=== PATIENT | male | born 1955 | race Caucasian/White ===

== ENCOUNTER 2019-09-10 02:10 | Inpatient (IN) ==
[2019-09-10] MEDS ORDERED: ALBUTEROL 2.5 MG/3 ML NEB RESP TX PRN (04:29)
[2019-09-10] MEDS ORDERED: ACETAMINOPHEN 325 MG TABLET PO PRN (04:29)
[2019-09-10] MEDS ORDERED: ONDANSETRON 4 MG/2 ML VIAL IV PRN (04:29)
[2019-09-10 04:46] LABS: Basophils % 0.1 % (0.0-0.8); Immature Granulocytes % 1.2 %; Immature Granulocytes Absolute 0.08 #; Lymphocytes # 0.9 10*3/uL (1.4-4.0); Lymphocytes % 12.4 % (21.2-54.2); Mean Corpuscular HGB Conc 32.6 GM/DL (32-36); Mean Corpuscular Volume 90.3 FL (87-102); Mean Platelet Volume 11.6 FL (9.6-12.0); Monocytes % 6.4 % (1.7-12.7); Neutrophils % 79.9 % (38.7-73.9); Platelet Count 163 T/CUMM (130-400); Red Blood Count 4.76 MC/CUMM (3.8-5.5); Red Cell Distribution Width 15.1 % (9.3-17.3); White Blood Count 6.9 T/CUMM (4-12)
[2019-09-10 04:52] LABS: ABG Base Excess 7.7 MMOL/L (-2.5-2.5); ABG HCO3 31.4 MMOL/L (20-26); ABG Oxygen Saturation 94.8 % (95-100); ABG PCO2 61.3 MM HG (35-48); ABG PH 7.372 (7.35-7.45); ABG PO2 76.5 MM HG (80-95); ABG TCO2 30.7 MMOL/L (23-27)
[2019-09-10 05:08] LABS: Albumin 2.4 G/DL (3.4-5.0); Bilirubin,Total 1.3 MG/DL (0.2-1.0); Calcium 7.9 MG/DL (8.5-10.1); Osmolality,Calculated 286.4 MOS/KG (273-304); Total Protein 7.9 G/DL (6.4-8.3)
[2019-09-10] MEDS: SODIUM CHLORIDE 0.9% 1,000 ML IV SCH (05:15)
[2019-09-10] MEDS: PHENYLEPHRINE DRIP 40 MG/250 ML PREMIX IV PRN ×3 (05:50→23:30)
[2019-09-10 07:49] LABS: Band Neutrophils 2 % (0-10); Lymphocytes 9 % (20-55); Platelet Estimate Adequate; Segmented Neutrophils 82 % (50-85); Total Cells Counted 100
[2019-09-10] MEDS ORDERED: GLUCAGON 1 MG VIAL IM PRN (08:25)
[2019-09-10] MEDS ORDERED: DEXTROSE 10% 250 ML BAG IV PRN (08:25)
[2019-09-10] MEDS: ZINC SULFATE 220 MG CAPSULE PO SCH (09:50)
[2019-09-10] MEDS: DOCUSATE SODIUM 100 MG CAPSULE PO SCH ×2 (09:50→20:32)
[2019-09-10] MEDS: HYDROXYCHLOROQUINE 200 MG TABLET PO SCH ×2 (09:50→20:33)
[2019-09-10] MEDS: cefTRIAXone 1,000 MG in SYRINGE 1 EACH IV SCH (09:50)
[2019-09-10] MEDS: ENOXAPARIN 80 MG/0.8 ML SYRINGE SUBCUT SCH ×2 (09:50→20:33)
[2019-09-10] MEDS: PANTOPRAZOLE 40 MG VIAL IV SCH (09:50)
[2019-09-10] MEDS: POTASSIUM CHLORIDE 20 MEQ/15 ML UDCUP PER TUBE SCH ×2 (11:15→15:37)
[2019-09-10] MEDS: INSULIN REGULAR 100 UNIT/ML SUBCUT SCH ×3 (12:55→23:13)
[2019-09-10] MEDS ORDERED: SODIUM CHLORIDE 0.9% 1,000 ML IV PRN (15:35)
[2019-09-10] MEDS ORDERED: PHENYLEPHRINE INJ 160 MG in SODIUM CHLORIDE 0.9% 234 ML IV PRN (23:45)
[2019-09-11 03:36] LABS: Allen Test Positive; Pt O2 Delivery Device Ventilator
[2019-09-11 03:41] LABS: ABG Base Excess 8.8 MMOL/L (-2.5-2.5); ABG HCO3 34.7 MMOL/L (20-26); ABG Oxygen Saturation 94.7 % (95-100); ABG PCO2 52.5 MM HG (35-48); ABG PH 7.438 (7.35-7.45); ABG PO2 74.5 MM HG (80-95); ABG TCO2 36.3 MMOL/L (23-27)
[2019-09-11] MEDS: SODIUM CHLORIDE 0.9% 1,000 ML IV SCH (04:53)
[2019-09-11 05:24] LABS: Basophils % 0.5 % (0.0-0.8); Hematocrit 42.1 VOL% (42.0-52.0); Hemoglobin 13.7 GM/DL (14.0-18.0); Immature Granulocytes % 1.1 %; Lymphocytes # 1.8 10*3/uL (1.4-4.0); Mean Corpuscular HGB Conc 32.5 GM/DL (32-36); Mean Corpuscular Volume 91.5 FL (87-102); Mean Platelet Volume 11.8 FL (9.6-12.0); Monocytes % 6.4 % (1.7-12.7); Platelet Count 189 T/CUMM (130-400); Red Cell Distribution Width 15.8 % (9.3-17.3); White Blood Count 8.8 T/CUMM (4-12)
[2019-09-11 05:38] LABS: Albumin 2.1 G/DL (3.4-5.0); Calcium 7.9 MG/DL (8.5-10.1); Osmolality,Calculated 287.1 MOS/KG (273-304); Total Protein 7.7 G/DL (6.4-8.3)
[2019-09-11 05:53] LABS: Hypochromasia Slight
[2019-09-11 05:54] LABS: Microcytosis 1+; Platelet Estimate Adequate
[2019-09-11] MEDS: INSULIN REGULAR 100 UNIT/ML SUBCUT SCH ×3 (06:15→17:24)
[2019-09-11 07:35] LABS: Calcium 7.9 MG/DL (8.5-10.1); Osmolality,Calculated 285.2 MOS/KG (273-304)
[2019-09-11] MEDS: PANTOPRAZOLE 40 MG VIAL IV SCH (08:40)
[2019-09-11] MEDS: DOCUSATE SODIUM 100 MG CAPSULE PO SCH ×2 (08:40→21:30)
[2019-09-11] MEDS: ENOXAPARIN 80 MG/0.8 ML SYRINGE SUBCUT SCH ×2 (08:40→21:30)
[2019-09-11] MEDS: cefTRIAXone 1,000 MG in SYRINGE 1 EACH IV SCH (08:49)
[2019-09-11] MEDS: HYDROXYCHLOROQUINE 200 MG TABLET PO SCH ×2 (08:54→21:30)
[2019-09-11] MEDS: POTASSIUM CHLORIDE 20 MEQ/15 ML UDCUP PER TUBE SCH ×2 (12:47→17:24)
[2019-09-11] MEDS ORDERED: POTASSIUM CHLORIDE 20 MEQ/15 ML UDCUP ONE (17:21)
[2019-09-12] MEDS: INSULIN REGULAR 100 UNIT/ML SUBCUT SCH ×4 (00:10→17:28)
[2019-09-12] MEDS: SODIUM CHLORIDE 0.9% 1,000 ML IV SCH ×2 (02:54→05:33)
[2019-09-12 04:03] LABS: ABG Base Excess 7.6 MMOL/L (-2.5-2.5); ABG HCO3 31.4 MMOL/L (20-26); ABG Oxygen Saturation 96.5 % (95-100); ABG PCO2 52.1 MM HG (35-48); ABG PH 7.421 (7.35-7.45); ABG PO2 81.9 MM HG (80-95); ABG TCO2 29.4 MMOL/L (23-27)
[2019-09-12 04:53] LABS: Basophils % 0.5 % (0.0-0.8); Hematocrit 41.6 VOL% (42.0-52.0); Hemoglobin 13.1 GM/DL (14.0-18.0); Immature Granulocytes % 1.5 %; Immature Granulocytes Absolute 0.13 #; Lymphocytes # 1.6 10*3/uL (1.4-4.0); Lymphocytes % 18.3 % (21.2-54.2); Mean Corpuscular HGB Conc 31.5 GM/DL (32-36); Mean Corpuscular Volume 92.7 FL (87-102); Mean Platelet Volume 11.6 FL (9.6-12.0); Monocytes % 8.3 % (1.7-12.7); Neutrophils % 71.4 % (38.7-73.9); Platelet Count 205 T/CUMM (130-400); Red Blood Count 4.49 MC/CUMM (3.8-5.5); Red Cell Distribution Width 15.9 % (9.3-17.3); White Blood Count 8.6 T/CUMM (4-12)
[2019-09-12 05:10] LABS: Calcium 7.7 MG/DL (8.5-10.1); Osmolality,Calculated 303.7 MOS/KG (273-304)
[2019-09-12 07:44] LABS: Band Neutrophils 4 % (0-10); Giant Platelets 1+; Hypochromasia 2+; Lymphocytes 15 % (20-55); Platelet Estimate Normal; Segmented Neutrophils 72 % (50-85); Total Cells Counted 100
[2019-09-12 07:45] LABS: Anisocytosis 1+
[2019-09-12] MEDS: ENOXAPARIN 80 MG/0.8 ML SYRINGE SUBCUT SCH ×2 (08:44→21:48)
[2019-09-12] MEDS: PANTOPRAZOLE 40 MG VIAL IV SCH (08:45)
[2019-09-12] MEDS: cefTRIAXone 1,000 MG in SYRINGE 1 EACH IV SCH (08:45)
[2019-09-12] MEDS: ZINC SULFATE 220 MG CAPSULE PO SCH (08:46)
[2019-09-12] MEDS: DOCUSATE SODIUM 100 MG CAPSULE PO SCH ×2 (08:46→21:48)
[2019-09-12] MEDS ORDERED: POTASSIUM CHLORIDE 20 MEQ/15 ML UDCUP PER TUBE ONE (08:58)
[2019-09-12] MEDS: HYDROXYCHLOROQUINE 200 MG TABLET PO SCH ×2 (09:08→21:47)
[2019-09-12] MEDS ORDERED: POTASSIUM CHLORIDE RIDER 0 ML IV ONE (09:15)
[2019-09-12] MEDS ORDERED: POTASSIUM CHLORIDE 20 MEQ/15 ML UDCUP ONE (09:22)
[2019-09-12] MEDS: methylPREDNISolone SOD SUC 40 MG/1 ML VIAL IV SCH ×2 (09:27→17:29)
[2019-09-12] MEDS ORDERED: INSULIN GLARGINE 100 UNIT/ML SUBCUT SCH (21:00)
[2019-09-13] MEDS: INSULIN REGULAR 100 UNIT/ML SUBCUT SCH ×5 (00:26→18:18)
[2019-09-13 03:33] LABS: Basophils % 0.3 % (0.0-0.8); Hematocrit 44.5 VOL% (42.0-52.0); Hemoglobin 14.3 GM/DL (14.0-18.0); Immature Granulocytes % 2.2 %; Immature Granulocytes Absolute 0.26 #; Lymphocytes % 8.4 % (21.2-54.2); Mean Corpuscular HGB Conc 32.1 GM/DL (32-36); Mean Corpuscular Volume 91.8 FL (87-102); Mean Platelet Volume 11.6 FL (9.6-12.0); Monocytes % 5.5 % (1.7-12.7); Neutrophils % 83.6 % (38.7-73.9); Platelet Count 234 T/CUMM (130-400); Red Blood Count 4.85 MC/CUMM (3.8-5.5); Red Cell Distribution Width 15.2 % (9.3-17.3); White Blood Count 11.9 T/CUMM (4-12)
[2019-09-13 04:02] VITALS: BP 128/77
[2019-09-13 04:18] LABS: ABG Base Excess 7.1 MMOL/L (-2.5-2.5); ABG HCO3 34.3 MMOL/L (20-26); ABG Oxygen Saturation 96.4 % (95-100); ABG PCO2 59.6 MM HG (35-48); ABG PH 7.378 (7.35-7.45); ABG PO2 88.4 MM HG (80-95); ABG TCO2 36.1 MMOL/L (23-27)
[2019-09-13 04:49] LABS: Band Neutrophils 6 % (0-10); Lymphocytes 6 % (20-55); Segmented Neutrophils 81 % (50-85); Total Cells Counted 100
[2019-09-13 04:50] LABS: Hypochromasia 1+; Microcytosis Slight; Platelet Estimate Normal; Polychromasia Slight
[2019-09-13 05:10] LABS: Calcium 8.3 MG/DL (8.5-10.1); Osmolality,Calculated 315.8 MOS/KG (273-304)
[2019-09-13] MEDS: methylPREDNISolone SOD SUC 40 MG/1 ML VIAL IV SCH ×3 (05:14→18:18)
[2019-09-13] MEDS: SODIUM CHLORIDE 0.9% 1,000 ML IV SCH (07:55)
[2019-09-13] MEDS: fentaNYL INJ 1,250 MCG in SODIUM CHLORIDE 0.9% 225 ML IV PRN ×3 (08:50→17:23)
[2019-09-13] MEDS: DOCUSATE SODIUM 100 MG CAPSULE PO SCH ×2 (09:25→23:11)
[2019-09-13] MEDS: PANTOPRAZOLE 40 MG VIAL IV SCH (09:25)
[2019-09-13] MEDS: HYDROXYCHLOROQUINE 200 MG TABLET PO SCH ×2 (09:25→23:11)
[2019-09-13] MEDS: ENOXAPARIN 80 MG/0.8 ML SYRINGE SUBCUT SCH ×2 (09:25→23:11)
[2019-09-13] MEDS: cefTRIAXone 1,000 MG in SYRINGE 1 EACH IV SCH (09:28)
[2019-09-13] MEDS ORDERED: INSULIN GLARGINE 100 UNIT/ML SUBCUT SCH (21:00)
[2019-09-14] MEDS: fentaNYL INJ 1,250 MCG in SODIUM CHLORIDE 0.9% 225 ML IV PRN ×5 (01:21→19:27)
[2019-09-14] MEDS: methylPREDNISolone SOD SUC 40 MG/1 ML VIAL IV SCH ×3 (01:40→17:51)
[2019-09-14 04:31] LABS: Allen Test Positive; Pt O2 Delivery Device Ventilator
[2019-09-14 04:32] LABS: ABG HCO3 37.8 MMOL/L (20-26); ABG Oxygen Saturation 96.5 % (95-100); ABG PO2 92.4 MM HG (80-95); ABG TCO2 40.2 MMOL/L (23-27)
[2019-09-14 04:36] LABS: ABG PCO2 78.5 MM HG (35-48)
[2019-09-14 05:00] LABS: Basophils # 0.1 10*3/uL (0.0-0.2); Basophils % 0.4 % (0.0-0.8); Immature Granulocytes % 2.8 %; Immature Granulocytes Absolute 0.38 #; Lymphocytes # 1.4 10*3/uL (1.4-4.0); Lymphocytes % 10.4 % (21.2-54.2); Mean Corpuscular HGB Conc 31.1 GM/DL (32-36); Mean Corpuscular Volume 93.6 FL (87-102); Monocytes % 8.8 % (1.7-12.7); Neutrophils % 77.6 % (38.7-73.9); Platelet Count 259 T/CUMM (130-400); Red Blood Count 4.81 MC/CUMM (3.8-5.5); Red Cell Distribution Width 15.4 % (9.3-17.3); White Blood Count 13.7 T/CUMM (4-12)
[2019-09-14 05:20] LABS: Osmolality,Calculated 316.1 MOS/KG (273-304)
[2019-09-14 05:32] LABS: Band Neutrophils 2 % (0-10); Lymphocytes 6 % (20-55); Platelet Estimate Adequate; Segmented Neutrophils 85 % (50-85); Total Cells Counted 100
[2019-09-14 05:33] LABS: Microcytosis Slight
[2019-09-14] MEDS: SODIUM CHLORIDE 0.9% 1,000 ML IV SCH (05:38)
[2019-09-14] MEDS: INSULIN REGULAR 100 UNIT/ML SUBCUT SCH ×4 (06:29→17:51)
[2019-09-14] MEDS: ZINC SULFATE 220 MG CAPSULE PO SCH (09:30)
[2019-09-14] MEDS: PANTOPRAZOLE 40 MG VIAL IV SCH (09:30)
[2019-09-14] MEDS: ASPIRIN CHEW 81 MG TABLET PO SCH (09:30)
[2019-09-14] MEDS: HYDROXYCHLOROQUINE 200 MG TABLET PO SCH ×2 (09:30→21:06)
[2019-09-14] MEDS: ENOXAPARIN 80 MG/0.8 ML SYRINGE SUBCUT SCH ×2 (09:30→21:06)
[2019-09-14] MEDS: cefTRIAXone 1,000 MG in SYRINGE 1 EACH IV SCH (09:30)
[2019-09-14] MEDS: DOCUSATE SODIUM 100 MG CAPSULE PO SCH ×2 (10:55→21:05)
[2019-09-14 11:48] LABS: ABG Base Excess 7.3 MMOL/L (-2.5-2.5); ABG HCO3 34.2 MMOL/L (20-26); ABG Oxygen Saturation 99.3 % (95-100); ABG PCO2 57.7 MM HG (35-48); ABG PH 7.391 (7.35-7.45); ABG PO2 225.9 MM HG (80-95)
[2019-09-14] MEDS ORDERED: INSULIN GLARGINE 100 UNIT/ML SUBCUT SCH (21:00)
[2019-09-15] MEDS: INSULIN REGULAR 100 UNIT/ML SUBCUT SCH ×4 (00:40→17:43)
[2019-09-15] MEDS: methylPREDNISolone SOD SUC 40 MG/1 ML VIAL IV SCH ×3 (03:09→21:39)
[2019-09-15 04:31] LABS: ABG Base Excess 6.7 MMOL/L (-2.5-2.5); ABG HCO3 33.9 MMOL/L (20-26); ABG Oxygen Saturation 97.2 % (95-100); ABG PCO2 59.9 MM HG (35-48); ABG PH 7.371 (7.35-7.45); ABG PO2 94.8 MM HG (80-95); ABG TCO2 35.8 MMOL/L (23-27); Allen Test Positive; Pt O2 Delivery Device Ventilator
[2019-09-15] MEDS: SODIUM CHLORIDE 0.9% 1,000 ML IV SCH (05:46)
[2019-09-15 06:09] LABS: Basophils # 0.1 10*3/uL (0.0-0.2); Basophils % 0.5 % (0.0-0.8); Hematocrit 44.1 VOL% (42.0-52.0); Hemoglobin 13.6 GM/DL (14.0-18.0); Immature Granulocytes % 5.8 %; Immature Granulocytes Absolute 0.75 #; Lymphocytes # 1.4 10*3/uL (1.4-4.0); Lymphocytes % 11.1 % (21.2-54.2); Mean Corpuscular HGB Conc 30.8 GM/DL (32-36); Mean Platelet Volume 11.6 FL (9.6-12.0); Monocytes % 10.2 % (1.7-12.7); Neutrophils % 72.4 % (38.7-73.9); Platelet Count 277 T/CUMM (130-400); Red Blood Count 4.64 MC/CUMM (3.8-5.5); Red Cell Distribution Width 15.5 % (9.3-17.3); White Blood Count 12.9 T/CUMM (4-12)
[2019-09-15 06:29] LABS: Calcium 7.7 MG/DL (8.5-10.1); Osmolality,Calculated 330.1 MOS/KG (273-304)
[2019-09-15 06:32] LABS: Band Neutrophils 1 % (0-10); Lymphocytes 4 % (20-55); Microcytosis Slight; Segmented Neutrophils 88 % (50-85); Total Cells Counted 100
[2019-09-15] MEDS: fentaNYL INJ 2,500 MCG in SODIUM CHLORIDE 0.9% 450 ML IV PRN ×3 (07:10→21:40)
[2019-09-15] MEDS: cefTRIAXone 1,000 MG in SYRINGE 1 EACH IV SCH (08:00)
[2019-09-15] MEDS: ASPIRIN CHEW 81 MG TABLET PO SCH (08:00)
[2019-09-15] MEDS: PANTOPRAZOLE 40 MG VIAL IV SCH (08:00)
[2019-09-15] MEDS: DOCUSATE SODIUM 100 MG CAPSULE PO SCH ×2 (08:00→21:37)
[2019-09-15] MEDS: ENOXAPARIN 80 MG/0.8 ML SYRINGE SUBCUT SCH ×2 (08:00→21:38)
[2019-09-15] MEDS ORDERED: INSULIN GLARGINE 100 UNIT/ML SUBCUT SCH (21:00)
[2019-09-16] MEDS: INSULIN REGULAR 100 UNIT/ML SUBCUT SCH ×6 (01:27→20:54)
[2019-09-16 03:34] LABS: ABG Base Excess 5.5 MMOL/L (-2.5-2.5); ABG HCO3 29.3 MMOL/L (20-26); ABG Oxygen Saturation 94.5 % (95-100); ABG PCO2 61.5 MM HG (35-48); ABG PH 7.346 (7.35-7.45); ABG PO2 76.5 MM HG (80-95); ABG TCO2 29.2 MMOL/L (23-27); Allen Test Positive; Pt O2 Delivery Device Ventilator
[2019-09-16 04:55] LABS: Hematocrit 44.4 VOL% (42.0-52.0); Hemoglobin 13.6 GM/DL (14.0-18.0); Lymphocytes % 12.7 % (21.2-54.2); Mean Corpuscular HGB Conc 30.6 GM/DL (32-36); Mean Corpuscular Volume 96.7 FL (87-102); Mean Platelet Volume 11.3 FL (9.6-12.0); Neutrophils % 68.7 % (38.7-73.9); Platelet Count 264 T/CUMM (130-400); Red Blood Count 4.59 MC/CUMM (3.8-5.5); Red Cell Distribution Width 15.5 % (9.3-17.3); White Blood Count 13.3 T/CUMM (4-12)
[2019-09-16 04:56] LABS: Basophils # 0.1 10*3/uL (0.0-0.2); Basophils % 0.8 % (0.0-0.8); Immature Granulocytes % 6.6 %; Immature Granulocytes Absolute 0.87 #; Lymphocytes # 1.7 10*3/uL (1.4-4.0); Monocytes % 11.2 % (1.7-12.7)
[2019-09-16] MEDS: SODIUM CHLORIDE 0.9% 1,000 ML IV SCH (05:01)
[2019-09-16] MEDS: fentaNYL INJ 2,500 MCG in SODIUM CHLORIDE 0.9% 450 ML IV PRN ×3 (05:01→21:22)
[2019-09-16 05:28] LABS: Band Neutrophils 1 % (0-10); Hypochromasia Slight; Lymphocytes 15 % (20-55); Microcytosis Slight; Platelet Estimate Adequate; Segmented Neutrophils 76 % (50-85); Total Cells Counted 100
[2019-09-16] MEDS: cefTRIAXone 1,000 MG in SYRINGE 1 EACH IV SCH (08:57)
[2019-09-16] MEDS: ASPIRIN CHEW 81 MG TABLET PO SCH (08:58)
[2019-09-16] MEDS: PANTOPRAZOLE 40 MG VIAL IV SCH (08:58)
[2019-09-16] MEDS: DOCUSATE SODIUM 100 MG CAPSULE PO SCH ×2 (08:58→20:52)
[2019-09-16] MEDS: ENOXAPARIN 80 MG/0.8 ML SYRINGE SUBCUT SCH ×2 (08:59→20:54)
[2019-09-16] MEDS: methylPREDNISolone SOD SUC 40 MG/1 ML VIAL IV SCH ×2 (09:02→21:30)
[2019-09-16 17:33] LABS: Pt O2 Delivery Device Ventilator
[2019-09-16 17:34] LABS: ABG HCO3 25.2 MMOL/L (20-26); ABG Oxygen Saturation 92.2 % (95-100); ABG PCO2 54.3 MM HG (35-48); ABG PH 7.327 (7.35-7.45); ABG PO2 68.7 MM HG (80-95); ABG TCO2 24.5 MMOL/L (23-27)
[2019-09-16] MEDS: PIPERACILLIN/TAZOBACTAM 3,375 MG in SODIUM CHLORIDE 0.9% 100 ML IV SCH (20:00)
[2019-09-16] MEDS ORDERED: INSULIN GLARGINE 100 UNIT/ML SUBCUT SCH (21:00)
[2019-09-17] MEDS: INSULIN REGULAR 100 UNIT/ML SUBCUT SCH ×3 (00:11→12:05)
[2019-09-17 04:03] LABS: ABG Base Excess 2.6 MMOL/L (-2.5-2.5); ABG HCO3 26.2 MMOL/L (20-26); ABG Oxygen Saturation 93.3 % (95-100); ABG PCO2 37.3 MM HG (35-48); ABG PH 7.465 (7.35-7.45); ABG PO2 67.2 MM HG (80-95); ABG TCO2 27.4 MMOL/L (23-27); Allen Test Positive; Basophils # 0.1 10*3/uL (0.0-0.2); Basophils % 0.4 % (0.0-0.8); Hematocrit 46.5 VOL% (42.0-52.0); Hemoglobin 14.2 GM/DL (14.0-18.0); Immature Granulocytes % 4.6 %; Immature Granulocytes Absolute 0.93 #; Lymphocytes # 1.3 10*3/uL (1.4-4.0); Lymphocytes % 6.2 % (21.2-54.2); Mean Corpuscular HGB Conc 30.5 GM/DL (32-36); Mean Corpuscular Volume 95.5 FL (87-102); Mean Platelet Volume 11.6 FL (9.6-12.0); Monocytes % 8.1 % (1.7-12.7); NRBC # 0.02 10*3/uL; Neutrophils % 80.7 % (38.7-73.9); Platelet Count 242 T/CUMM (130-400); Pt O2 Delivery Device Ventilator; Red Blood Count 4.87 MC/CUMM (3.8-5.5); Red Cell Distribution Width 15.6 % (9.3-17.3); White Blood Count 20.3 T/CUMM (4-12)
[2019-09-17] MEDS: PIPERACILLIN/TAZOBACTAM 3,375 MG in SODIUM CHLORIDE 0.9% 100 ML IV SCH ×3 (04:03→20:18)
[2019-09-17 04:31] LABS: Calcium 7.5 MG/DL (8.5-10.1); Osmolality,Calculated 356.7 MOS/KG (273-304)
[2019-09-17] MEDS: SODIUM CHLORIDE 0.9% 1,000 ML IV SCH (04:35)
[2019-09-17 04:55] LABS: Band Neutrophils 2 % (0-10); Hypochromasia Slight; Lymphocytes 6 % (20-55); Microcytosis Slight; Platelet Estimate Adequate; Segmented Neutrophils 85 % (50-85); Total Cells Counted 100
[2019-09-17] MEDS: PHENYLEPHRINE INJ 160 MG in SODIUM CHLORIDE 0.9% 234 ML IV PRN ×3 (05:36→22:09)
[2019-09-17] MEDS ORDERED: SODIUM CHLORIDE 0.9% 500 ML IV ONE (06:35)
[2019-09-17] MEDS: fentaNYL INJ 2,500 MCG in SODIUM CHLORIDE 0.9% 450 ML IV PRN ×2 (07:04→14:42)
[2019-09-17] MEDS ORDERED: NOREPINEPHRINE 8 MG in SODIUM CHLORIDE 0.9% 242 ML IV PRN (07:40)
[2019-09-17] MEDS ORDERED: NOREPINEPHRINE 4 MG/4 ML VIAL IV ONE (07:42)
[2019-09-17] MEDS: ENOXAPARIN 80 MG/0.8 ML SYRINGE SUBCUT SCH ×2 (09:25→20:18)
[2019-09-17] MEDS: PANTOPRAZOLE 40 MG VIAL IV SCH (09:25)
[2019-09-17] MEDS: DOCUSATE SODIUM 100 MG CAPSULE PO SCH ×2 (09:25→20:18)
[2019-09-17] MEDS: methylPREDNISolone SOD SUC 40 MG/1 ML VIAL IV SCH ×2 (09:25→21:09)
[2019-09-17] MEDS: ASPIRIN CHEW 81 MG TABLET PO SCH (09:25)
[2019-09-17] MEDS ORDERED: SODIUM CHLORIDE 0.9% 1,000 ML IV SCH (13:30)
[2019-09-17] MEDS ORDERED: VANCOMYCIN INJ 2,500 MG in SODIUM CHLORIDE 0.9% 500 ML IV SCH (15:00)
[2019-09-17] MEDS: INSULIN REGULAR DRIP 100 ML IV SCH ×3 (15:26→22:35)
[2019-09-17] MEDS ORDERED: INSULIN REGULAR 100 UNIT/ML IV ONE ×2 (17:46→21:20)
== END 2019-09-17 22:48 | disposition expired | DRG 870 ==
LOC: SUATTDRO 04:17 → N.CC 04:17
PROVIDERS: ADMIT Surgery; ATTEND Internal Medicine